=== PATIENT | female | born 1970 | race Hispanic/Latino ===

== ENCOUNTER 2023-12-30 22:33 | Observation (INO) | payer SELFPAY ==
[~2023-12-30] VITALS: Ht 162.6 cm; Wt 120.2 kg
[~2023-12-30 22:33] MED LIST: AEC81 PO; ASPI-1005 PO; ATOR40TA69 PO; CLOP-31 PO; ENAL-89 PO; FURO20TA6 PO; METO25TA3 PO; MULT-1203 PO; NITR0.4T50 SL
[2023-12-30 22:50] VITALS: BP 159/79; PULSE 87; RESP 19; TEMP 98.3
[2023-12-30 23:30] VITALS: O2SAT 97
[2023-12-30] MEDS ORDERED: acetaMINOPHEN 325 MG TAB PO PRN ×2 (23:30)
[2023-12-30] MEDS ORDERED: ondanSETRON 4MG INJ IV PRN (23:30)
[2023-12-30] MEDS ORDERED: PoTASSium chloRIDE 20MEQ ER 20 MEQ ERTAB PO PRN (23:30)
[2023-12-30] MEDS ORDERED: PoTASSium chloRIDE 20MEQ/100ML 100 ML IV PRN (23:30)
[2023-12-30] MEDS ORDERED: DEXTROSE 50%-WATER 50 ML DISP.SYRIN IV PRN (23:30)
[2023-12-30] MEDS ORDERED: GLUCAGON 1MG KIT 1 MG ML IM PRN (23:30)
[2023-12-30] MEDS ORDERED: PoTASSium chl 10% ELIXIR 20MEQ 20 MEQ/15 ML UDCUP PO PRN (23:30)
[2023-12-31] MEDS: ceFAZolin SODIUM 1 GM VIAL IVPB SCH (00:39)
[2023-12-31] MEDS: ketOROlac 15MG/ML VIAL (15MG/ML) IV ONE (01:08)
[2023-12-31 04:12] VITALS: BP 158/78; PULSE 76; RESP 18; TEMP 97.6
[2023-12-31 05:26] LABS: BASOPHILS # (AUTO) 0.02 K/uL (0.00-0.20); BASOPHILS % (AUTO) 0.4 % (0.0-5.0); EOSINOPHILS # (AUTO) 0.16 K/uL (0.00-0.70); HEMATOCRIT 29.9 % (36-48); IMMATURE GRANULOCYTE ABSOLUTE 0.01 K/uL (0-1); LYMPHOCYTES # (AUTO) 1.4 K/uL (1.0-4.8); LYMPHOCYTES % (AUTO) 27.2 % (21.0-51.0); MEAN CORPUSCULAR HEMOGLOBIN 26.8 pg (27.0-33.0); MEAN CORPUSCULAR HGB CONC 29.4 g/dL (32.0-36.0); MEAN CORPUSCULAR VOLUME 91.2 fL (79-99); MONOCYTES # (AUTO) 0.5 K/uL (0.1-1.0); MONOCYTES % (AUTO) 9.6 % (3.0-13.0); NEUTROPHILS # (AUTO) 3.2 K/uL (1.8-7.7); NEUTROPHILS % (AUTO) 59.6 % (40.0-77.0); PLATELET COUNT (AUTO) 251 K/uL (130-400); RED BLOOD CELL COUNT(AUTO) 3.28 MIL/uL (4.00-5.50); RED CELL DISTRIBUTION WIDTH 16.3 % (11.0-15.5); WHITE BLOOD COUNT (AUTO) 5.3 K/uL (4.8-10.8)
[2023-12-31 05:58] LABS: ALBUMIN 2.2 g/dL (3.5-5.0); BILIRUBIN,TOTAL 1.4 mg/dL (0.2-1.0); CREATININE 0.7 mg/dL (0.5-1.0); MAGNESIUM 1.7 mg/dL (1.80-2.40); POTASSIUM 3.5 mmol/L (3.5-5.1); TOTAL PROTEIN, SERUM 6.2 g/dL (6.0-8.3)
[2023-12-31] MEDS: INSULIN humuLIN R 100 UNIT/ML 3ML SQ SCH (06:29)
[2023-12-31] MEDS: MAGNESIUM 2GM PREMIX 50ML 50 ML IV PRN (06:30)
[2023-12-31 06:31] LABS: ERYTHROCYTE SEDIMENTATION RATE 25 MM/HR (0-30)
[2023-12-31] MEDS: ASPIRIN 81 MG EC TAB PO SCH (07:55)
[2023-12-31] MEDS: metoPROLOL tartRATE 25 MG TAB PO SCH (07:55)
[2023-12-31] MEDS: furoSEMIDE 20 MG TABLET PO SCH (07:55)
[2023-12-31] MEDS: FAMOTIDINE 20MG TAB PO SCH (07:55)
[2023-12-31] MEDS: cloPIDOgrel 75MG TAB PO SCH (07:56)
[2023-12-31] MEDS: ENOXAPARIN SODIUM 30 MG/0.3 ML SQ SCH (07:56)
[2023-12-31 08:00] VITALS: BP 139/69; PULSE 79; RESP 20; TEMP 97.8
[2023-12-31 11:46] VITALS: BP 125/51; PULSE 59; RESP 18; TEMP 97.6
[2023-12-31] MEDS ORDERED: AMOX-426 PO (14:25)
[2023-12-31] MEDS ORDERED: HONEY 1 APPL/ML TUBE TP SCH ×2 (16:00)
[2023-12-31] MEDS ORDERED: atorVAStatin 40 MG TABLET PO SCH ×2 (21:00)
[2024-01-01] MEDS ORDERED: metOPROLol sucCINATE 25 MG TAB.SR.24H PO SCH (09:00)
[2024-01-01] MEDS ORDERED: furoSEMIDE 20 MG TABLET PO SCH (09:00)
[2024-01-01] MEDS ORDERED: NITROGLYCERIN 0.4 MG SL TAB SL PRN (09:00)
[2024-01-01] MEDS ORDERED: ASPIRIN 81MG CHEW TAB PO SCH (09:00)
== END 2023-12-31 17:00 | disposition home or self-care (01) ==
LOC: INTOOBSV 22:51 → OBSVTOIN 22:51 → 3CH 22:51
PROVIDERS: ADMIT Internal Medicine; ATTEND Internal Medicine
DX: T81.31XA Disruption of external operation (surgical) wound, not elsewhere classified, initial encounter (principal); I10 Essential (primary) hypertension; E78.5 Hyperlipidemia, unspecified; R73.9 Hyperglycemia, unspecified; E66.01 Morbid (severe) obesity due to excess calories; I25.10 Atherosclerotic heart disease of native coronary artery without angina pectoris; R05.9 Cough, unspecified; R11.2 Nausea with vomiting, unspecified; R50.9 Fever, unspecified; Z86.73 Personal history of transient ischemic attack (TIA), and cerebral infarction without residual deficits; Z79.899 Other long term (current) drug therapy; Z68.42 Body mass index [BMI] 45.0-49.9, adult; Z95.1 Presence of aortocoronary bypass graft; Y92.89 Other specified places as the place of occurrence of the external cause
CPT/HCPCS: 96375; 96372; 96365; 96366; 96367; 83735; 80053; 85025; 85651; 87070; 87076; 87086; 87186; 83605; 36415; 71250; 93005; 84145; G0378 ×18; J3475; J0690 ×2; J1650; J1885

== ENCOUNTER → 2024-01-02 | Outpatient (CLI) | payer SELFPAY ==
[~2024-01-02] MED LIST changes: -AEC81 PO; +AMOX-426 PO; -ENAL-89 PO; +LIDOCAINE HCL 4% LTA SOL 4 ML VIAL TP ONE; -MULT-1203 PO
== END | disposition home or self-care (01) ==
LOC: WHH 10:03
PROVIDERS: ATTEND Family Medicine
DX: T81.31XA Disruption of external operation (surgical) wound, not elsewhere classified, initial encounter (principal); S21.101A Unspecified open wound of right front wall of thorax without penetration into thoracic cavity, initial encounter; I10 Essential (primary) hypertension; E66.9 Obesity, unspecified; E78.00 Pure hypercholesterolemia, unspecified; I21.4 Non-ST elevation (NSTEMI) myocardial infarction; I25.10 Atherosclerotic heart disease of native coronary artery without angina pectoris; Z86.73 Personal history of transient ischemic attack (TIA), and cerebral infarction without residual deficits; Z68.43 Body mass index [BMI] 50.0-59.9, adult; Z95.1 Presence of aortocoronary bypass graft; Z79.899 Other long term (current) drug therapy; X58.XXXA Exposure to other specified factors, initial encounter; Y83.8 Other surgical procedures as the cause of abnormal reaction of the patient, or of later complication, without mention of misadventure at the time of the procedure; Y92.238 Other place in hospital as the place of occurrence of the external cause; Y93.89 Activity, other specified; Y99.8 Other external cause status; Y92.89 Other specified places as the place of occurrence of the external cause
CPT/HCPCS: 11042; A4450

== ENCOUNTER → 2024-01-09 | Outpatient (CLI) | payer SELFPAY | END | disposition home or self-care (01) | LOC: WHH 08:55 | PROVIDERS: ATTEND Family Medicine | DX: T81.31XD Disruption of external operation (surgical) wound, not elsewhere classified, subsequent encounter (principal); S21.101D Unspecified open wound of right front wall of thorax without penetration into thoracic cavity, subsequent encounter; I10 Essential (primary) hypertension; E66.9 Obesity, unspecified; Z95.1 Presence of aortocoronary bypass graft; Z68.43 Body mass index [BMI] 50.0-59.9, adult; X58.XXXD Exposure to other specified factors, subsequent encounter; Y83.8 Other surgical procedures as the cause of abnormal reaction of the patient, or of later complication, without mention of misadventure at the time of the procedure | CPT/HCPCS: 99214 ==

== ENCOUNTER → 2024-01-30 | Outpatient (CLI) | payer SELFPAY ==
[~2024-01-30] MED LIST changes: -LIDOCAINE HCL 4% LTA SOL 4 ML VIAL TP ONE
== END | disposition home or self-care (01) ==
LOC: WHH 09:07
PROVIDERS: ATTEND Family Medicine
DX: T81.31XD Disruption of external operation (surgical) wound, not elsewhere classified, subsequent encounter (principal); S21.101D Unspecified open wound of right front wall of thorax without penetration into thoracic cavity, subsequent encounter; I10 Essential (primary) hypertension; E66.01 Morbid (severe) obesity due to excess calories; E78.5 Hyperlipidemia, unspecified; I21.4 Non-ST elevation (NSTEMI) myocardial infarction; Z79.899 Other long term (current) drug therapy; Z68.43 Body mass index [BMI] 50.0-59.9, adult; Z86.73 Personal history of transient ischemic attack (TIA), and cerebral infarction without residual deficits; Z95.1 Presence of aortocoronary bypass graft; X58.XXXD Exposure to other specified factors, subsequent encounter; Y83.8 Other surgical procedures as the cause of abnormal reaction of the patient, or of later complication, without mention of misadventure at the time of the procedure
CPT/HCPCS: 99214

== ENCOUNTER → 2024-02-19 | Outpatient (CLI) | payer SELFPAY ==
[2024-02-19 12:58] LABS: CHOLESTEROL 129 mg/dL (<200); HDL CHOLESTEROL 40 mg/dL (35-85); LDL DIRECT 76 mg/dL (0-99); TRIGLYCERIDES 120 mg/dL (30-200)
== END | disposition home or self-care (01) ==
LOC: LAB 10:03
PROVIDERS: ATTEND Internal Medicine Cardiovascular Disease
DX: I25.10 Atherosclerotic heart disease of native coronary artery without angina pectoris (principal)
CPT/HCPCS: 36415; 80061